=== PATIENT | male | born 1975 ===

== ENCOUNTER 2024-10-11 12:30 | Inpatient (IN) | payer OTHER ==
[~2024-10-11] VITALS: Ht 190.5 cm; Wt 131.5 kg
[2024-10-17 09:25] VITALS: BP 144/86
[2024-10-17] MEDS ORDERED: BUPROPION XL300 MG PO (09:27)
[2024-10-17 09:38] LABS: URINE APPEARANCE Clear; URINE BILIRRUBIN Negative (NEGATIVE); URINE BLOOD Negative; URINE COLOR Yellow; URINE GLUCOSE Negative (NEGATIVE); URINE KETONE Negative (NEGATIVE); URINE LEUKOCYTE Negative; URINE NITRATE Negative; URINE PROTEIN Negative (NEGATIVE)
[2024-10-17 09:38] LABS: HEMATOCRIT 45.6 % (39.0-48.0); HEMOGLOBIN 14.6 g/dL (13-16.00); MEAN CELL VOLUME 82.6 fL (80.0-100.00); MEAN CORPUSCULAR HEMOGLOBIN 26.5 pg (27.00-32.0); MEAN CORPUSCULAR HGB CONC 32.1 g/dl (32.0-36.0); PLATELET COUNT 243 K/uL (150-450); RED BLOOD COUNT 5.53 M/uL (4.00-6.00); RED CELL DISTRIBUTION WIDTH 15.1 % (11.5-14.5)
[2024-10-17 09:44] LABS: URINE EPITHELIAL CELLS 3.3 uL (0.0-38.8); URINE RBC 16.2 uL (0.0-20.8); URINE WBC 1.8 uL (0.0-23.2)
[2024-10-17 09:47] LABS: URINE BACTERIA 3.6 uL (0.0-1933); URINE CAST 0.29 uL (0.0-1.40)
[2024-10-17 10:03] LABS: INR 0.98; PARTIAL THROMBOPLASTIN TIME 29.4 SECONDS (22.0-34.0); PROTHROMBIN TIME 10.7 SECONDS (9.0-11.5)
[2024-10-17 10:14] LABS: ALBUMIN 3.6 gm/dL (3.4-5.0); BILIRUBIN TOTAL 0.71 mg/dL (0.3-1.2); CREATININE SERUM 1.24 mg/dL (0.70-1.30); GFR 62.49; GLOBULINA 3.9 G/DL (2.4-3.5); POTASSIUM 4.12 mEq/L (3.5-5.1); TOTAL PROTEIN 7.5 gm/dL (6.4-8.2)
[2024-10-23] MEDS ORDERED: BUPIVACAINE HCL/MPF 0.5% 30ML VIAL ONE (10:39)
[2024-10-23] MEDS ORDERED: LIDOCAINE HCL 1%/EPINEPHRINE 20ML VIAL IJ ONE (10:39)
[2024-10-23] MEDS ORDERED: METRONIDAZOLE/SODIUM CHLORIDE 500 MG/100 ML PIGGYBACK IV ONE (10:40)
[2024-10-23] MEDS ORDERED: CEFTRIAXONE SODIUM 2,000 MG VIAL ONE (10:40)
[2024-10-23] MEDS ORDERED: DEXTROSE 50 % IN WATER 0.5 G/ML DISP.SYRIN IV PRN (14:00)
[2024-10-23] MEDS ORDERED: RINGERS SOLUTION,LACTATED 1,000 ML IV SCH (14:00)
[2024-10-23] MEDS ORDERED: MORPHINE SULFATE 4 MG/ML CARTRIDGE IV PRN (14:00)
[2024-10-23] MEDS ORDERED: OxyCODONE HCL 5 MG TABLET (ROXICODONE) PO PRN (14:00)
[2024-10-23] MEDS ORDERED: ACETAMINOPHEN 500 MG GEL..CAP PO SCH (14:00)
[2024-10-23] MEDS ORDERED: ONDANSETRON HCL 2 MG/ML VIAL IV PRN (14:00)
[2024-10-23] MEDS ORDERED: SUGAMMADEX SODIUM 200 MG/2 ML VIAL IV ONE (14:32)
[2024-10-23] MEDS ORDERED: MORPHINE SULFATE 4 MG/ML VIAL IV ONE ×2 (16:25→16:55)
[2024-10-23] MEDS ORDERED: CELECOXIB 200 MG CAPSULE PO SCH (17:00)
[2024-10-23] MEDS ORDERED: POLYETHYLENE GLYCOL 3350 17 GM BLIST.PACK PO SCH (17:00)
[2024-10-23] MEDS ORDERED: GABAPENTIN 300 MG CAPSULE PO SCH (17:00)
[2024-10-23] MEDS ORDERED: METOCLOPRAMIDE HCL 5 MG/ML VIAL IV SCH (17:00)
[2024-10-23] MEDS ORDERED: SIMETHICONE 125 MG CAPSULE PO SCH (17:00)
[2024-10-23] MEDS ORDERED: HYOSCYAMINE SULFATE 0.125 MG TAB.SUBL SL SCH (17:00)
[2024-10-23 17:11] LABS: HEMATOCRIT 43.5 % (39.0-48.0); HEMOGLOBIN 14.3 g/dL (13-16.00); MEAN CELL VOLUME 81.3 fL (80.0-100.00); MEAN CORPUSCULAR HEMOGLOBIN 26.6 pg (27.00-32.0); MEAN CORPUSCULAR HGB CONC 32.8 g/dl (32.0-36.0); PLATELET COUNT 230 K/uL (150-450); RED BLOOD COUNT 5.36 M/uL (4.00-6.00); RED CELL DISTRIBUTION WIDTH 15.1 % (11.5-14.5)
[2024-10-23 20:09] VITALS: BP 147/97; O2SAT 90
[2024-10-23] MEDS ORDERED: FAMOTIDINE/PF 20 MG/2 ML VIAL IV PUSH SCH (21:00)
[2024-10-24 01:19] VITALS: BP 135/96; O2SAT 98
[2024-10-24 07:06] LABS: HEMATOCRIT 39.3 % (39.0-48.0); HEMOGLOBIN 12.9 g/dL (13-16.00); MEAN CELL VOLUME 81.4 fL (80.0-100.00); MEAN CORPUSCULAR HEMOGLOBIN 26.7 pg (27.00-32.0); MEAN CORPUSCULAR HGB CONC 32.8 g/dl (32.0-36.0); PLATELET COUNT 212 K/uL (150-450); RED BLOOD COUNT 4.83 M/uL (4.00-6.00); RED CELL DISTRIBUTION WIDTH 14.6 % (11.5-14.5)
[2024-10-24 08:00] VITALS: BP 124/77; O2SAT 95
[2024-10-24 08:02] LABS: ALBUMIN 2.8 gm/dL (3.4-5.0); CALCIUM 7.9 mg/dL (8.5-10.1); CREATININE SERUM 1.11 mg/dL (0.70-1.30); GFR 71.01; MAGNESIUM 2.1 mg/dL (1.8-2.4); PHOSPHOROUS 3.6 mg/dL (2.5-4.9); POTASSIUM 4.05 mEq/L (3.5-5.1)
[2024-10-24] MEDS ORDERED: LACTULOSE 20 G/30 ML BLIST.PACK PO SCH (09:00)
[2024-10-24] MEDS ORDERED: BUPROPION HCL 150 MG TABLET.SA PO SCH (09:00)
[2024-10-24] MEDS ORDERED: LACTOBACILLUS ACIDOPHILUS 1 CAP CAP PO SCH (09:00)
[2024-10-24 17:00] VITALS: BP 105/79; O2SAT 100
[2024-10-24] MEDS ORDERED: ENOXAPARIN SODIUM 40 MG/0.4 ML SYRINGE SUBCUTANEO SCH (17:00)
[2024-10-25 01:22] VITALS: BP 147/83; O2SAT 98
[2024-10-25] MEDS ORDERED: ENOXAPARIN SODIUM 40 MG/0.4 ML SYRINGE SUBCUTANEO SCH (09:00)
[2024-10-25 10:58] VITALS: BP 144/81; O2SAT 96
[2024-10-25 19:00] VITALS: BP 148/81; O2SAT 97
[2024-10-25] MEDS ORDERED: MORPHINE SULFATE 4 MG/ML CARTRIDGE IV PRN (19:30)
[2024-10-26] VITALS: BP 149/77; O2SAT 96
[2024-10-26 09:22] VITALS: BP 155/78; O2SAT 97
== END 2024-10-26 11:35 | disposition home or self-care (01) | DRG 330 ==
LOC: O/R 10-23 05:20 → SURH 10-23 09:15
PROVIDERS: ADMIT Colon & Rectal Surgery; ATTEND Colon & Rectal Surgery
PROC: 0DBP4ZZ Excision of Rectum, Percutaneous Endoscopic Approach (ICD-10-PCS; 2024-10-23)
PROC: 0DTN4ZZ Resection of Sigmoid Colon, Percutaneous Endoscopic Approach (ICD-10-PCS; principal; 2024-10-23 10:15)
DX: K57.32 Diverticulitis of large intestine without perforation or abscess without bleeding (principal); K92.1 Melena